=== PATIENT | female | born 1985 | race Caucasian/White ===

== ENCOUNTER → 2017-10-07 | Outpatient (CLI) | payer BC, OTHER ==
--- NOTE | 2017-10-07 10:29 | US ---
EXAMINATION TYPE: US thyroid st tissue head/neck DATE OF EXAM: 10/07/2017 COMPARISON: US thyroid 01/21/2010 CLINICAL HISTORY: E04.9 Nontoxic goiter, R13.10 Dysphagia; Left thyroid nodule GLAND SIZE: Right Lobe: 5.0 x 2.7 x 2.0 cm Overall Parenchyma: homogenous Left Lobe: 4.8 x 2.2 x 2.0 cm Overall Parenchyma: homogeneous Isthmus Thickness: 0.4 cm NODULES RIGHT: # of nodules measured on right: 1 1. 0.8 X 0.6 x 0.4 cm hypoechoic solid nodule at the lower pole with well-defined margins. This no dule is wider than tall and shows no intranodular vascularity. Prior size: not previously seen LEFT: # of nodules measured on left: 2 1. 0.6 X 0.4 x 0.3 cm hypoechoic mixed nodule at the upper pole with poorly defined margins. This nodule is wider than tall and shows no intranodular vascularity. Prior size: 1.1 x 0.5cm x 2. 0.4 X 0.4 x 0.3 cm hypoechoic solid nodule at the lower pole with well-defined margins. This nod ule is wider than tall . Prior size: not previously seen ISTHMUS: # of nodules measured in the isthmus: 0 Bilateral neck scanned, no evidence of lymphadenopathy. IMPRESSION: Subcentimeter thyroid nodules bilaterally.
== END | disposition home or self-care (01) ==
LOC: RADUSWWP 08:25
PROVIDERS: ATTEND Family Medicine
DX: E04.2 Nontoxic multinodular goiter (principal)
CPT/HCPCS: 76536

== ENCOUNTER → 2017-10-26 | Outpatient (CLI) | payer BC, OTHER ==
--- NOTE | 2017-10-28 09:11 | MR ---
EXAMINATION TYPE: MR brain wo/w con DATE OF EXAM: 10/26/2017 COMPARISON: NONE HISTORY: Dizzy, Headaches, Loss of Hearing, Previous MRI on PACS, Gadavist 12 TECHNIQUE: Multiplanar, multisequence images of the brain and brainstem is performed without and with IV contras t, utilizing 12 mL intravenous Gadavist . FINDINGS: Diffusion weighted images demonstrate no evidence of a recent infarct or other diffusion ab normality. There is no extra-axial fluid collection or significant white matter signal abnormality. The ventricular system and cisternal spaces are normal in size and appearance. The brain volume is age appropriate. Midline structures demonstrate normal morphology. The craniocervical junction appears within normal limits. Post contrast images demonstrate no abnormal enhancement. The dural venous sinuses appear pa tent. Nondependent 2.0 cm right maxillary mucosal retention cyst and surrounding mild mucosal thicken ing is also seen. Moderate mucosal thickening in the ethmoid sinuses are also noted. Remainder the pa ranasal sinuses and mastoid air cells are well aerated. 4 mm pineal gland cyst is incidentally noted. Cerebellopontine angles are unremarkable. There is no abnormal enhancement of the 7th or 8th cranial nerves or cerebellopontine angle mass. IMPRESSION: 1. 2 cm right maxillary mucosal retention cyst and moderate paranasal sinus disease, which may accoun t for the patient's headaches. 2. No MR findings to account for the patient's hearing loss. No evidence of intracranial mass, white matter change, or infarct.
== END | disposition home or self-care (01) ==
LOC: RADMRIMAIN 18:10
PROVIDERS: ATTEND Family Medicine
DX: G44.52 New daily persistent headache (NDPH) (principal)
CPT/HCPCS: 70553; A9581

== ENCOUNTER → 2017-11-16 | Outpatient (CLI) | payer BC ==
[2017-11-17 01:21] LABS: Hepatitis C IgG Antibody Non-Reactive (Non-Reactive)
[2017-11-17 02:01] LABS: HIV AB P24 Non-Reactive (Non-Reactive); HIV P24 AG Non-Reactive (Non-Reactive)
== END | disposition home or self-care (01) ==
LOC: LABWHC1 15:37
PROVIDERS: ATTEND Psychiatry & Neurology Vascular Neurology
DX: G43.009 Migraine without aura, not intractable, without status migrainosus (principal)
CPT/HCPCS: 36415; 86592; 86704; 86803; 87390

== ENCOUNTER → 2018-07-19 | Outpatient (CLI) | payer BC ==
--- NOTE | 2018-07-19 11:42 | XR ---
EXAMINATION TYPE: XR cervical spine comp DATE OF EXAM: 07/19/2018 CLINICAL HISTORY: pain COMPARISON: NONE TECHNIQUE: Frontal, lateral, oblique, swimmers, and open mouth view of the cervical spine are obtaine d. FINDINGS: The cervical spine is visualized in its entirety from C1 thru the top of T1 level. It is s atisfactory in alignment without evidence of acute fracture or dislocation. There is mild reversal of the normal cervical lordosis which can be seen in patients with muscle spasticity. The pre-vertebral soft tissue appears within normal limits. Disc spaces are well preserved. The C1-C2 articulation is unremarkable on the open mouth view. The oblique images are within normal limits. IMPRESSION: There is mild reversal of the normal cervical lordosis which can be seen in patients wit h muscle spasticity.
--- NOTE | 2018-07-19 11:43 | XR ---
EXAMINATION TYPE: XR thoracic spine complete DATE OF EXAM: 07/19/2018 CLINICAL HISTORY: pain TECHNIQUE: Frontal, lateral, and swimmer's view of thoracic spine are obtained. COMPARISON: None. FINDINGS: Thoracic spine show satisfactory alignment without evidence of acute fracture or dislocatio n. Vertebral body heights are preserved. Disc spaces are well preserved. Visualized ribs are unrem arkable. IMPRESSION: No acute fracture or dislocation is seen in the thoracic spine. ICD 10 NO FRACTURE, INIT IAL EVALUATION
== END | disposition home or self-care (01) ==
LOC: RADXRMAIN 11:13
PROVIDERS: ATTEND Family Medicine
DX: M53.82 Other specified dorsopathies, cervical region (principal); R20.9 Unspecified disturbances of skin sensation
CPT/HCPCS: 72050; 72072

== ENCOUNTER 2024-01-06 18:50 | Emergency (ER) | payer BC ==
[2024-01-06 18:59] VITALS: TEMP 98.4
--- NOTE | 2024-01-06 19:34 | ED ---
Lower Extremity Injury HPI - General Chief Complaint: Extremity Injury, Lower Stated Complaint: R ankle injury Time Seen by Provider: 01/06/24 19:08 Source: patient Mode of arrival: ambulatory Limitations: no limitations - History of Present Illness Initial Comments: 38-year-old female presenting with chief complaint of right ankle pain. Patient was walking up the stairs and states that there was a small drop after turning the corner causing her to invert her ankle. She is having pain mostly to the lateral portion of the ankle and the arch of her foot. She is having difficulty bearing weight. Pain is worse with moving her toes, she can move her toes and has no numbness or tingling. - Related Data Home Medications Medication Instructions Recorded Confirmed Thrive Patch 1 patch TOPICAL DAILY 05/17/16 05/24/16 Thrive Protein Shake 0.5 dose PO DAILY 05/17/16 05/24/16 Thrive W Supplement 1 cap PO DAILY 05/17/16 05/24/16 Cephalexin [Keflex] 500 mg PO Q12HR 05/24/16 05/24/16 predniSONE [Deltasone] 20 mg PO BID 05/24/16 05/24/16 Previous Rx's Medication Instructions Recorded Triamcinolone 0.1% Cream [Kenalog 1 applicatio TOPICAL BID #30 gram 05/17/16 0.1% Cream] Allergies Allergy/AdvReac Type Severity Reaction Status Date / Time No Known Allergies Allergy Verified 01/06/24 18:55 Review of Systems ROS Statement: Those systems with pertinent positive or pertinent negative responses have been documented in the HPI. ROS Other: All systems not noted in ROS Statement are negative. Past Medical History Past Medical History: Fibromyalgia Additional Past Medical History / Comment(s): DDD, scoliosis History of Any Multi-Drug Resistant Organisms: None Reported Past Surgical History: Section, Cholecystectomy Additional Past Surgical History / Comment(s): uterine ablation Past Psychological History: Anxiety, Depression Past Alcohol Use History: None Reported Past Drug Use History: None Reported General Exam Limitations: no limitations General appearance: alert, in no apparent distress Head exam: Present: atraumatic, normocephalic Eye exam: Present: normal appearance, EOMI Neck exam: Present: normal inspection Respiratory exam: Absent: respiratory distress Cardiovascular Exam: Present: regular rate Right Ankle exam: Present: normal inspection, tenderness. Absent: full ROM, deformity Foot/Toe exam: Present: normal inspection, tenderness Neurological exam: Present: alert, oriented X3 Psychiatric exam: Present: normal affect, normal mood Skin exam: Present: warm, dry Course Vital Signs 01/06/24 01/06/24 18:53 22:25 Temperature 98.4 F Pulse Rate 77 75 Respiratory 16 18 Rate Blood Pressure 149/78 124/84 O2 Sat by Pulse 100 98 Oximetry Procedures - Orthopedic Splinting/Casting Injury #1 Side: right Lower Extremity Injury Location: ankle Lower Extremity Immobilizer: stirrup splint Other Orthopedic Equipment: crutches Disposition Clinical Impression: Fracture of lateral malleolus Disposition: HOME SELF-CARE Condition: Good Instructions (If sedation given, give patient instructions): Ankle Fracture (ED) Additional Instructions: Follow-up with orthopedics. Report back to ER with any new or worsening symptoms. Rest, ice, elevate the leg. Keep the leg in the splint at all times until seen by orthopedics. Motrin and Tylenol as needed for pain Is patient prescribed a controlled substance at d/c from ED?: No Referrals: Racheal Suero MD [Primary Care Provider] - 1-2 days Silvana Hankins DO [Doctor of Osteopathic Medicine] - 1-2 days Time of Disposition: 22:05
[2024-01-06] MEDS: KETOROLAC 15 MG/ML 1 ML VIAL IM STA (19:36)
--- NOTE | 2024-01-06 21:40 | XR ---
EXAMINATION TYPE: XR foot complete RT DATE OF EXAM: 01/06/2024 7:52 PM CLINICAL INDICATION:Female, 38 years old with history of twisted ankle; [facility] COMPARISON: None. TECHNIQUE: 3 views right foot, 3 views right ankle FINDINGS: Acute mildly displaced avulsion fracture at the tip of the lateral malleolus, with mild displacement. Distal tibia including the medial and posterior malleoli appear intact. Ankle mortise is preserved. Talar dome is normal. There are small dorsal and moderate sized plantar calcaneal spurs. Osseous structures of the foot appear to be intact and normally aligned. No significant degenerative changes or erosions. Soft tissue swelling about the ankle. Unremarkable foot soft tissues. No radiopaque foreign body is s een. IMPRESSION: Acute mildly displaced avulsion fracture at the tip of the lateral malleolus.
[2024-01-06 22:58] VITALS: BP 124/84; PULSE 75; RESP 18
== END 2024-01-06 22:25 | disposition home or self-care (01) ==
LOC: EC 18:50
DX: S82.61XA Displaced fracture of lateral malleolus of right fibula, initial encounter for closed fracture (principal); X50.1XXA Overexertion from prolonged static or awkward postures, initial encounter; Y93.01 Activity, walking, marching and hiking
CPT/HCPCS: 73610; 73630; 29515; 99283; 96372; J1885

== ENCOUNTER → 2024-07-17 | Outpatient (CLI) | payer BC ==
--- NOTE | 2024-07-17 08:46 | US ---
EXAMINATION TYPE: US thyroid st tissue head/neck DATE OF EXAM: 07/17/2024 COMPARISON: US thyroid 2018 CLINICAL INDICATION: Female, 38 years old with history of E07.89 OTHER SPECIFIED DISORDERS OF THYROID ; Not on thyroid meds. Hx of nodules- haven't had an ultrasound is >6 years. TECHNIQUE: Grayscale and color Doppler imaging of the thyroid gland. FINDINGS: GLAND SIZE: Right Lobe: 5.6 x 2.7 x 2.1 cm Overall Parenchyma: heterogeneous Left Lobe: 5.6 x 2.3 x 2.1 cm Overall Parenchyma: heterogeneous Isthmus Thickness: 0.5 cm NODULES RIGHT: # of nodules measured on right: 0 Previously seen right thyroid lobe nodule is not well visualized on today's exam. LEFT: # of nodules measured on left: 1 1. 0.7 X 0.6 x 0.5 cm, lower mid, solid or almost completely solid, hypoechoic nodule, which is wid er than tall, with smooth margins, without echogenic foci. TR 4. Prior size: 0.6 x 0.3 x 0.4 ISTHMUS: # of nodules measured in the isthmus: 0 Bilateral neck scanned, no evidence of lymphadenopathy. IMPRESSION: Diffusely heterogenous mildly enlarged thyroid gland with a subcentimeter left thyroid lobe TR 4 nodu le. ACR TI-RADS LEVEL: TR-RADS 4: Follow if > 1 cm, FNA if > 1.5 cm *Highest TI-RADS level nodule reported [facility], , 07/17/2024 8:44 AM
== END | disposition home or self-care (01) ==
LOC: RADUSWWP 07:58
PROVIDERS: ATTEND Family Medicine
CPT/HCPCS: 76536

== ENCOUNTER → 2025-01-16 | Outpatient (CLI) | payer BC ==
--- NOTE | 2025-01-16 09:48 | US ---
EXAMINATION TYPE: US thyroid st tissue head/neck DATE OF EXAM: 01/16/2025 COMPARISON: 07/17/24 CLINICAL INDICATION: Female, 39 years old with history of E04.1 NONTOXIC SINGLE THYROID NODULE; follo w up TECHNIQUE: Grayscale and color Doppler imaging of the thyroid gland. FINDINGS: GLAND SIZE: Right Lobe: 5.4 x 2.8 x 2.2 cm Overall Parenchyma: heterogeneous Left Lobe: 5.2 x 2.3 x 1.8 cm Overall Parenchyma: heterogeneous Isthmus Thickness: 0.5 cm NODULES RIGHT: # of nodules measured on right: 0 LEFT: # of nodules measured on left: 1 1. 0.7 X 0.8 x 0.5 cm, mid mid, solid or almost completely solid, hypoechoic nodule, which is wider than tall, with ill-defined margins, without echogenic foci. Prior size: 7 x 6 x 5 mm ISTHMUS: # of nodules measured in the isthmus: 0 Bilateral neck scanned, no evidence of lymphadenopathy. IMPRESSION: Thyromegaly, possible goiter, with a solitary, fairly stable 8mm TR4 nodule in the left lobe. TR4: If nodule size is ? 1.5 cm, FNA is recommended. If nodule size is ? 1.0 cm, follow-up imaging at 1, 2, 3, and 5 years is recommended. [facility], Workstation: [email or web address], 01/16/2025 9:46 AM
== END | disposition home or self-care (01) ==
LOC: RADUSWWP 09:15
PROVIDERS: ATTEND Family Medicine
DX: E01.0 Iodine-deficiency related diffuse (endemic) goiter (principal)
CPT/HCPCS: 76536